=== PATIENT | female | born 2000 | race Caucasian/White ===

== ENCOUNTER → 2019-04-30 16:14 | Outpatient (CLI) | payer OTHER, SELFPAY ==
[2019-05-04 14:06] LABS: Alternaria tenuis 0.31 kU/L (Class 0/I); Aspergillus fumigatus <0.10 kU/L (Class 0); Bermuda Grass 6.79 kU/L (Class IV); Black Walnut 9.58 kU/L (Class IV); Cat Hair / Dander,Stand 0.47 kU/L (Class I); Cedar, Mountain 1.12 kU/L (Class II); Cladosporium herbarum <0.10 kU/L (Class 0); Cockroach, American 0.19 kU/L (Class 0/I); Cottonwood 4.42 kU/L (Class IV); D farinae Mite 0.14 kU/L (Class 0/I); D pteronyssinus 0.15 kU/L (Class 0/I); Dog Epithelia 1.63 kU/L (Class III); Elm, American White 5.13 kU/L (Class IV); Immunoglobulin E 278 IU/mL (6-495); Maple/Box Elder 7.71 kU/L (Class IV); Mulberry, White 0.37 kU/L (Class I); Pecan 9.42 kU/L (Class IV); Penicillium Notatum <0.10 kU/L (Class 0); Pigweed, Rough 5.97 kU/L (Class IV); Russian Thistle 3.66 kU/L (Class III); Sheep Sorrel 5.48 kU/L (Class IV); Sycamore, American 4.36 kU/L (Class IV); Timothy Grass 9.11 kU/L (Class IV)
[2019-05-04 17:01] LABS: Mouse Urine 2.78 kU/L (Class III)
[2019-05-05 03:06] LABS: Clam 0.16 kU/L (Class 0/I); Codfish <0.10 kU/L (Class 0); Corn 0.62 kU/L (Class II); Egg, White <0.10 kU/L (Class 0); Milk (Cow) <0.10 kU/L (Class 0); Peanut 1.37 kU/L (Class II); SCALLOP 0.23 kU/L (Class 0/I); SESAME SEED 1.17 kU/L (Class II); Shrimp <0.10 kU/L (Class 0); Soybean 0.34 kU/L (Class I); Walnut, (Food) 0.68 kU/L (Class II); Wheat 0.66 kU/L (Class II)
[2019-05-05 13:13] LABS: Beef <0.10 kU/L (Class 0)
== END ==
PROVIDERS: Family Provider Family Medicine; PCP Family Medicine; Referring Provider Otolaryngology; Visit Provider Otolaryngology
DX: T78.40XA Allergy, unspecified, initial encounter (principal)
CPT/HCPCS: 36415; 82785; 86003

== ENCOUNTER → 2024-07-11 | Outpatient (CLI) | payer OTHER, SELFPAY ==
[2024-07-17 14:07] LABS: Garlic 0.11 kU/L (Class 0/I)
== END | disposition home or self-care (01) ==
LOC: LAB 15:10
PROVIDERS: PCP Family Medicine; Referring Provider Otolaryngology; Visit Provider Otolaryngology
DX: T78.40XA Allergy, unspecified, initial encounter (principal); X58.XXXA Exposure to other specified factors, initial encounter
CPT/HCPCS: 36415; 86003